=== PATIENT | male | born 1970 | race Caucasian/White ===

== ENCOUNTER 2018-06-14 09:24 | Emergency (ER) | payer SELFPAY ==
[2018-06-14] MEDS ORDERED: Sodium Chloride 0.9% 1,000 ML ONE (10:13)
[2018-06-14 10:31] LABS: ALT (SGPT) 15 U/L (8-55); AST (SGOT) 17 U/L (5-34); Alkaline Phosphatase 82 U/L (40-150); Anion Gap 16 mmol/L (10-20); Anisocytosis SLIGHT = 6-15 cells (100X) (0-5/hpf); BUN (Urea Nitrogen) 12 mg/dL (8.9-20.6); Bilirubin, Total 0.2 mg/dL (0.2-1.2); CK (CPK) 310 U/L (30-200); Calc. Creatinine Clearance 0 mL/min (70-130); Calcium 8.8 mg/dL (7.8-10.44); Carbon Dioxide 26 mmol/L (22-29); Chloride 104 mmol/L (98-107); Eosinophils 2 % (0-10); Estimated GFR-MDRD Greater than 90; Globulin 2.5 g/dL (2.4-3.5); Glucose 105 mg/dL (70-105); Hemoglobin 13.5 g/dL (14.0-18.0); Lipase 48 U/L (8-78); Lymphocytes 23 % (21-51); MDiff Complete? YES; Mean Corpuscular HGB CONC 32.2 g/dL (32.0-36.0); Mean Corpuscular Hemoglobin 28.6 pg (27.0-31.0); Mean Platelet Volume 5.7 fL (7.4-10.4); Monocytes 7 % (0-10); Neutrophil 68 % (42-75); PLT Morphology Comment Appears Adequate; Platelet Count 342 thou/uL (130-400); Potassium 3.5 mmol/L (3.5-5.1); Protein, Total 6.5 g/dL (6.0-8.3); RBC Distribution Width 12.8 % (11.5-14.5); Red Blood Cell (RBC) Count 4.71 mill/uL (4.70-6.10); Sodium 142 mmol/L (136-145); White Blood Cell (WBC) Count 7.2 thou/uL (4.8-10.8)
--- NOTE | 2018-06-14 10:54 | RAD ---
PORTABLE AP CHEST RADIOGRAPH: Date: 06-14-18 History: Hematemesis. Comparison: 02-09-18 FINDINGS: Cardiac silhouette and pulmonary vasculature are within normal limits. Lungs are clear. There has bee n no interval change from prior study. IMPRESSION: No acute cardiopulmonary process. POS: [facility]
--- NOTE | 2018-06-14 11:04 | RAD ---
NECK SOFT TISSUE: History: Throat pain. Comparison: None. FINDINGS: No radiopaque foreign object. Prevertebral soft tissues are unremarkable. Mild vascular calcifications left carotid bulb. IMPRESSION: No radiopaque foreign object. POS: [facility]
--- NOTE | 2018-06-14 12:45 | CT ---
CHEST CT SCAN WITH IV CONTRAST: HISTORY: A 47-year-old male with a history of throat and neck pain with hematemesis. FINDINGS: No mediastinal mass or adenopathy. There is a 0.4 cm diameter pleural-based nodule in the right lowe r lobe. There is also a second 0.3 cm diameter nodule in the right lower lobe which is subpleural. No pleural effusion. No significant acute pulmonary parenchymal process. Tracheal and bronchial aicha e is unremarkable. The visualized upper abdomen is unremarkable. IMPRESSION: Two small less than 0.4 cm diameter right lower lobe pleural-based and subpleural nodules. No additi onal followup is needed unless the patient is at high risk for primary or secondary malignancy. If t hat is the case, a 1-year followup might be considered. No acute intrathoracic disease. POS: [facility]
== END 2018-06-14 12:10 | disposition home or self-care (01) ==
LOC: NAV ERS 09:24
DX: F45.8 Other somatoform disorders (principal); R91.8 Other nonspecific abnormal finding of lung field; F17.210 Nicotine dependence, cigarettes, uncomplicated
CPT/HCPCS: 70360; 71045; 71260; 80053; 82274; 82550; 83690; 85025; 96360; J7050